=== PATIENT | female | born 1960 | race Caucasian/White ===

== ENCOUNTER 2017-05-28 08:09 | Day surgery (SDC) | payer OTHER ==
[2017-05-28] MEDS ORDERED: MIDAZOLAM 1 MG/ML 2 ML INJ ×2 (10:46)
[2017-05-28] MEDS ORDERED: FENTAnyl 50 MCG/ML VIAL (10:46)
== END 2017-05-28 16:43 | disposition home or self-care (01) ==
LOC: GIL 08:09
DX: Z12.11 Encounter for screening for malignant neoplasm of colon (principal); K57.90 Diverticulosis of intestine, part unspecified, without perforation or abscess without bleeding; K64.8 Other hemorrhoids
CPT/HCPCS: 45378